=== PATIENT | female | born 1955 | race Caucasian/White ===

== ENCOUNTER 2018-03-18 11:53 | Day surgery (SDC) | payer OTHER ==
[~2018-03-18 11:53] MED LIST: DEXAMETHASONE 4 MG/ML 1 ML INJ; ONDANSETRON 4 MG INJ
[2018-03-18 12:45] LABS: ADD MAN DIFF? NO
[2018-03-18 12:48] LABS: WHITE BLOOD COUNT 6.9 10^3/ul (4.8-10.8)
[2018-03-18 12:48] LABS: BASOPHILS % 0.4 % (0.0-2.0); EOSINOPHILS # 0.4 10^3/ul (0.0-0.5); EOSINOPHILS % 5.5 % (0.0-7.0); HEMATOCRIT 41.7 % (37.0-47.0); HEMOGLOBIN 13.8 g/dl (12.0-16.0); LYMPHOCYTES # 2.7 10^3/ul (0.8-2.9); LYMPHOCYTES % 38.9 % (15.0-51.0); MEAN CORPUSCULAR HEMOGLOBIN 28.9 pg (29.0-33.0); MEAN CORPUSCULAR HGB CONC 33.1 g/dl (32.0-37.0); MEAN CORPUSCULAR VOLUME 87.4 fl (82.0-101.0); MEAN PLATELET VOLUME 10.4 fl (7.4-10.4); MONOCYTE # 0.7 10^3/ul (0.3-0.9); NEUTROPHIL # 3.1 10^3/ul (1.6-7.5); NEUTROPHILS % 44.8 % (39.0-77.0); PLATELET COUNT 244 10^3/UL (140-415); RED BLOOD COUNT 4.77 10^6/ul (4.20-5.40); RED CELL DISTRIBUTION WIDTH 12.8 % (11.5-14.5)
[2018-03-18 13:07] LABS: INR 0.91; PARTIAL THROMBOPLASTIN TIME 25.3 Sec (25.0-35.0); PROTIME 12.3 Sec (11.9-14.9)
[2018-03-18] MEDS ORDERED: FENTAnyl 50 MCG/ML VIAL (15:33)
[2018-03-18] MEDS ORDERED: PROPOFOL 20 ML (15:34)
[2018-03-18] MEDS ORDERED: MIDAZOLAM 1 MG/ML 2 ML INJ (15:34)
[2018-03-18] MEDS ORDERED: LIDOCAINE 100 MG SYRINGE (16:21)
[2018-03-18] MEDS ORDERED: SUCCINYLCHOLINE CHLORIDE 100 MG/5 ML SYG IV (16:21)
[2018-03-18] MEDS: OXYMETAZOLINE 0.05% 15 ML NAS SPRAY NASAL (16:40)
[2018-03-18] MEDS: LIDOCAINE 1%/EPI 30 ML INJ (16:40)
[2018-03-18] MEDS ORDERED: METOCLOPRAMIDE 10 MG INJ (16:51)
[2018-03-18] MEDS ORDERED: MEPERIDINE 25 MG INJ IV (18:00)
[2018-03-18] MEDS ORDERED: ONDANSETRON 4 MG INJ IV (18:00)
[2018-03-18] MEDS ORDERED: LEVALBUTEROL (NEB) 1.25 MG/0.5 ML AMP HHN (18:00)
[2018-03-18] MEDS ORDERED: LABETALOL HCL 20MG INJ IV (18:00)
[2018-03-18] MEDS ORDERED: DIPHENHYDRAMINE 50 MG INJ IV (18:00)
[2018-03-18] MEDS ORDERED: HYDROmorphONE (0.2 MG/ML) 10ML SYG IV ×2 (18:00)
[2018-03-18] MEDS ORDERED: FENTAnyl 50 MCG/ML VIAL IV ×2 (18:00)
[2018-03-18] MEDS: hydrALAzine 20 MG INJ IV (18:25)
== END 2018-03-18 19:21 | disposition home or self-care (01) ==
LOC: SDS 11:53
DX: J34.2 Deviated nasal septum (principal); J32.8 Other chronic sinusitis; I10 Essential (primary) hypertension; E78.5 Hyperlipidemia, unspecified
CPT/HCPCS: 31256; 85025; 85610; 85730